=== PATIENT | male | born 1960 ===

== ENCOUNTER 2017-11-11 17:12 | Emergency (ER) | payer OTHER ==
[~2017-11-11] VITALS: Ht 180.3 cm; Wt 75.8 kg
[~2017-11-11 17:12] MED LIST: HYDACE5 PO; METH5; MIRT30; OLAN20; RXHYDACE PO
[2017-11-11] MEDS ORDERED: SYMAX PO (17:33)
== END 2017-11-11 18:28 | disposition home or self-care (01) ==
LOC: ER 17:12
DX: M25.512 Pain in left shoulder (principal); F17.200 Nicotine dependence, unspecified, uncomplicated
CPT/HCPCS: 99282